=== PATIENT | male | born 1945 | race Caucasian/White ===

== ENCOUNTER → 2019-03-23 | Outpatient (CLI) | payer OTHER, MEDICARE ==
[~2019-03-23] VITALS: Ht 172.7 cm; Wt 151.0 kg
[~2019-03-23] MED LIST: ALEVE220 MG PO; ASPIR 8181 M1 PO; ATENOLOL 100MG100 MG PO; CLARITIN10 MG PO; LIPITOR10 MG PO; MAXZIDE-25 MG1 EACH PO; PRILOSEC OTC20 MG PO; THERA-M1 EAC1 PO
[2019-03-23 08:40] VITALS: BP 145/74
[2019-03-23 08:55] LABS: HEMATOCRIT 41.1 % (42.0-52.0); HEMOGLOBIN 13.9 gm/dL (14.0-18.0); MCH 30.6 pg (26.0-34.0); MCHC 33.8 g/dL (28.0-37.0); MCV 90.5 fL (80.0-100.0); RBC 4.55 mil/uL (4.50-6.00); RDW 13.2 % (10.5-14.5); WBC 4.8 thou/uL (4.0-11.0)
[2019-03-23 09:00] LABS: CALCIUM 8.6 mg/dL (8.5-10.1); CREATININE 1.5 mg/dL (0.7-1.3); POTASSIUM 3.7 mmol/L (3.5-5.1)
--- NOTE | 2019-03-23 09:18 | EKG ---
[address] [address] ELECTROCARDIOGRAM REPORT Name: JUNHYACINTHALVARADO HUTSON [facility] SomersetKelsey#: [id number] ������������������ Admission: 03/23/19 ������������������ Attend Phys: Kendall Nelson MD Discharge: ������������������ Date of : 49 Report #: [id number] ����������������������������������������������������������������� [id number] THIS REPORT FOR: //name// [facility] Test Date: 2019-03-23 Test Time: 08:53:30 Pat Name: HYACINTH BARAHONA Department: Room: Gender: Racing Manager: Loretta FULLER : 1945 Requested By: Kendall Nelson Order Number: [id number] MD: Samson Bolanos Measurements Intervals [place] Rate: 47 P: 32 PA: 193 QRS: -45 QRSD: 101 T: 2 QT: 473 QTc: 419 Interpretive Statements Sinus bradycardia Left anterior fascicular block Abnormal R-wave progression, early transition No previous ECG available for comparison Electronically Signed On 03-23-2019 9:18:24 CDT by Samson Bolanos [email or web address] ��������������������������������������������� <ELECTRONICALLY SIGNED> ���������������������������������������� By: Samson Bolanos MD, [facility] ��������������������������������������������� 03/23/19 0918 0853 2 Samson Bolanos MD, FACC /EPI
--- NOTE | 2019-03-23 15:07 | CATHLAB ---
[facility] [place] [address] INVASIVE PROCEDURE REPORT Name: HYACINTH BARAHONA HARESH Room #: REG [facility]el[facility] [id number] ������������� Admission: 03/23/19 ������������� Attend Phys: Kendall Nelson MD Discharge: ��� ������������� ��� Date of : 49 Date of Service: 03/23/19 1507 �� Report #: [id number] �������� ��������������������������������������������[id number] THIS REPORT FOR: //name// APPROVED REPORT Study performed: 03/23/2019 09:27:02 Patient Details Patient Status: Out-Patient Room #: The patient is a 73 year-old male Event Personnel Kendall Nelson Side Laster Tack, Martha Lomeli RTR, COMPRESSOR ASSEMBLER Monitor, Jonas Jaime RN RN, Larry Saleh RTR Scrub Procedures Performed Art Access - R radial artery Left Heart Cath w/or w/o Coronaries [id number] [facility] [address] Initial Mod Sed Same Phys/QHP 5y [id number] Hemostasis with Hemoband Indication Dyspnea, Positive stress test Risk Factors Obesity, Hypercholesterolemia, Hypertension Procedure Narrative The Right Wrist^ was infiltrated with 1% Lidocaine subcutaneous anesthesia. A TRANSRADIAL SLENDER 6F GLIDESHEATH KIT #[id number] sheath was inserted into the Right Radial Artery^. Coronary angiography was performed using coronary diagnostic catheters. The right coronary system was accessed and visualized with a JR4 catheter. The left coronary system was accessed and visualized with a JL4 catheter. The left ventricle was accessed and visualized with a JR4 catheter. Left ventricular/Aortic Valve gradient assessed via catheter pullback. The patient tolerated the procedure well and there were no complications associated with the procedure. There was no hematoma. VascBand used for hemostasis. Intraoperative Conscious Sedation Sedation start time: 09:38 Case end Time: 09:58 Fentanyl 75 mcg Versed 1 mg Fluoro Time: 4.50 minutes [facility] [place] [address] INVASIVE PROCEDURE REPORT Name: HYACINTH BARAHONA Room #: REG [facility]#: [id number] ������������� Admission: 03/23/19 ������������� Attend Phys: Kendall Nelson MD Discharge: ��� ������������� ��� Date of : 49 Date of Service: 03/23/19 1507 �� Report #: [id number] �������� ��������������������������������������������[id number] Dose: DAP 01677.80 cGycm2 1142 mGy Contrast Type and Amount: Visipaque 65 ml Coronary Angiography The patient's coronary anatomy is right dominant. Diagnostic Cath Left Main This is a large caliber vessel, patent with no flow-limiting lesions. LAD There is a moderate size caliber vessel, traversing the anterior wall and terminating at the apex. There is mild disease in the proximal segment, 20%. Diagonal 1 This is a patent vessel, with no flow-limiting lesions. Diagonal 2 This is a patent vessel, with no flow-limiting lesions. Circumflex This is a patent vessel, supplies 2 obtuse marginal arteries. OM1 This is a patent vessel, with no flow-limiting lesions. OM2 This is a patent vessel, with no flow-limiting lesions. Right Coronary This is a dominant vessel with mild disease in the proximal and mid segments, 30%. R PDA This is a patent vessel, with no flow-limiting lesions. RPLV This is a patent vessel, with no flow-limiting lesions. Left Ventriculography Left Ventriculography was not performed. Ejection Fraction was >55% based off patient's Nuclear Cardiac Stress Test. An LVEDP was measured and there is no gradient across the outflow tract. Hemodynamics The aortic pressure is 100/52 mmHg with a mean of 73 mmHg. The left ventricular pressure is 99/13 mmHg with a mean of mmHg. The left ventricular end diastolic pressure is 23 mmHg. Conclusion 1. Mild, nonobstructive coronary artery disease in the LAD and RCA. [facility] [address] [place] [address] INVASIVE PROCEDURE REPORT Name: JUNHYACINTHALVARADO HUTSON Room #: REG CL [facility]#: [id number] ������������� Admission: 03/23/19 ������������� Attend Phys: Kendall Nelson MD Discharge: ��� ������������� ��� Date of : 49 Date of Service: 03/23/19 1507 �� Report #: [id number] �������� ��������������������������������������������[id number] 2. Preserved LV systolic function. 3. Recommend aggressive risk factor management. ��������������������������������������������� <ELECTRONICALLY SIGNED> ���������������������������������������� By: Kendall Nelson MD ��������������������������������������������� 03/23/19 1507 1507 150 Kendall Nelson MD /INF
== END | disposition home or self-care (01) ==
LOC: CATH 08:07
PROVIDERS: Internal Medicine Cardiovascular Disease
DX: I25.10 Atherosclerotic heart disease of native coronary artery without angina pectoris (principal); I10 Essential (primary) hypertension; E78.00 Pure hypercholesterolemia, unspecified; E66.09 Other obesity due to excess calories; K21.9 Gastro-esophageal reflux disease without esophagitis; G47.33 Obstructive sleep apnea (adult) (pediatric); Z82.49 Family history of ischemic heart disease and other diseases of the circulatory system; Z87.891 Personal history of nicotine dependence; Z79.82 Long term (current) use of aspirin; Z79.899 Other long term (current) drug therapy; Z98.890 Other specified postprocedural states

== ENCOUNTER → 2020-01-18 | Outpatient (CLI) | payer OTHER | LOC: SJCVC 11:11 | DX: I44.4 Left anterior fascicular block (principal); R94.31 Abnormal electrocardiogram [ECG] [EKG]; I25.10 Atherosclerotic heart disease of native coronary artery without angina pectoris; I10 Essential (primary) hypertension; E78.00 Pure hypercholesterolemia, unspecified; R60.9 Edema, unspecified; K21.9 Gastro-esophageal reflux disease without esophagitis; E78.5 Hyperlipidemia, unspecified; E66.9 Obesity, unspecified; Z82.49 Family history of ischemic heart disease and other diseases of the circulatory system; Z79.82 Long term (current) use of aspirin; Z79.899 Other long term (current) drug therapy; Z87.891 Personal history of nicotine dependence ==

== ENCOUNTER → 2020-02-28 | Outpatient (CLI) | payer OTHER | LOC: SJCVC 11:03 | DX: R93.1 Abnormal findings on diagnostic imaging of heart and coronary circulation (principal); Z79.899 Other long term (current) drug therapy ==

== ENCOUNTER → 2020-10-24 | Outpatient (CLI) | payer OTHER | LOC: SJCVCIMAG 09:14 | PROVIDERS: ATTEND Internal Medicine Cardiovascular Disease | DX: I08.8 Other rheumatic multiple valve diseases (principal); I11.9 Hypertensive heart disease without heart failure; E78.00 Pure hypercholesterolemia, unspecified; R60.9 Edema, unspecified; I47.9 Paroxysmal tachycardia, unspecified; I25.10 Atherosclerotic heart disease of native coronary artery without angina pectoris; I48.92 Unspecified atrial flutter; I48.91 Unspecified atrial fibrillation; E66.9 Obesity, unspecified; G47.30 Sleep apnea, unspecified; Z79.82 Long term (current) use of aspirin; Z79.899 Other long term (current) drug therapy; Z87.891 Personal history of nicotine dependence ==

== ENCOUNTER → 2020-11-14 | Outpatient (CLI) | payer OTHER | LOC: SJCVCIMAG 09:07 | PROVIDERS: ATTEND Internal Medicine Cardiovascular Disease | DX: I25.10 Atherosclerotic heart disease of native coronary artery without angina pectoris (principal); I49.3 Ventricular premature depolarization; I48.91 Unspecified atrial fibrillation; I10 Essential (primary) hypertension; E78.00 Pure hypercholesterolemia, unspecified; E78.5 Hyperlipidemia, unspecified; E66.9 Obesity, unspecified; G47.30 Sleep apnea, unspecified; K21.9 Gastro-esophageal reflux disease without esophagitis; Z98.890 Other specified postprocedural states; Z79.82 Long term (current) use of aspirin; Z79.899 Other long term (current) drug therapy; Z87.891 Personal history of nicotine dependence; Z82.49 Family history of ischemic heart disease and other diseases of the circulatory system ==

== ENCOUNTER → 2021-05-28 | Outpatient (CLI) | payer OTHER | LOC: SJCVC 15:40 | PROVIDERS: ATTEND Internal Medicine Cardiovascular Disease | DX: R94.31 Abnormal electrocardiogram [ECG] [EKG] (principal); I44.4 Left anterior fascicular block; R00.1 Bradycardia, unspecified; I25.10 Atherosclerotic heart disease of native coronary artery without angina pectoris; I48.91 Unspecified atrial fibrillation; I10 Essential (primary) hypertension; E78.00 Pure hypercholesterolemia, unspecified; R06.09 Other forms of dyspnea; E78.5 Hyperlipidemia, unspecified; E66.9 Obesity, unspecified; Z79.82 Long term (current) use of aspirin; Z79.899 Other long term (current) drug therapy; Z87.891 Personal history of nicotine dependence; Z72.89 Other problems related to lifestyle ==

== ENCOUNTER → 2021-11-28 | Outpatient (CLI) | payer OTHER | LOC: SJCVC 12:59 | PROVIDERS: ATTEND Internal Medicine Cardiovascular Disease | DX: I44.4 Left anterior fascicular block (principal); R94.31 Abnormal electrocardiogram [ECG] [EKG]; I48.0 Paroxysmal atrial fibrillation; I25.10 Atherosclerotic heart disease of native coronary artery without angina pectoris; I10 Essential (primary) hypertension; E78.00 Pure hypercholesterolemia, unspecified; R60.9 Edema, unspecified; R00.1 Bradycardia, unspecified; G47.30 Sleep apnea, unspecified; E78.5 Hyperlipidemia, unspecified; Z82.49 Family history of ischemic heart disease and other diseases of the circulatory system; Z72.89 Other problems related to lifestyle; Z79.899 Other long term (current) drug therapy ==